=== PATIENT | female | born 1970 | race Two or more races ===

== ENCOUNTER 2017-04-17 08:25 | Outpatient (CLI) | payer OTHER ==
--- NOTE | 2017-04-19 09:50 | Mammography Report ---
DIGITAL BILATERAL SCREENING MAMMOGRAM: 04/17/2017 COMPARISON STUDY: Mammogram 03/09/2015. INDICATION: Screening mammography. TECHNIQUE: Routine CC and MLO projections were obtained of the breasts. FINDINGS: Parenchymal tissue within both breasts is extremely dense, which lowers the sensitivity of mammography; however, there are no dominant masses, suspicious microcalcifications, or secondary sig ns of malignancy. In comparison to the previous studies, there are no significant changes. IMPRESSION: No mammographic evidence of malignancy. PLAN: Screening mammography is recommended annually. BIRADS category 1 - negative. STANDARD QUALIFYING STATEMENTS 1. This examination was reviewed with the aid of Computed-Aided Detection (CAD). 2. A negative or benign imaging report should not delay biopsy if clinically suspicious findings are present. Consider surgical consultation if warranted. More than 5% of cancers are not identified by i maging. 3. Dense breasts may obscure an underlying neoplasm. JOB #: [id number] EXT JOB #:[id number]
== END 2017-04-17 08:26 | disposition home or self-care (01) ==
LOC: DI 08:25
PROVIDERS: ATTEND Family Medicine
DX: Z12.31 Encounter for screening mammogram for malignant neoplasm of breast (principal)
CPT/HCPCS: 77067

== ENCOUNTER 2017-09-28 18:55 | Emergency (ER) | payer OTHER ==
[2017-09-28 19:10] VITALS: BP 129/87
[2017-09-28] MEDS ORDERED: BENZONATATE 100 MG CAPSULE PO STA (20:13)
[2017-09-28] MEDS ORDERED: KETOROLAC 60 MG/2 ML VIAL IM STA (20:13)
--- NOTE | 2017-09-28 20:20 | ED Physician Documentation ---
PD HPI URI - Stated complaint Stated Complaint: COUGH/FEVER - Chief complaint Chief Complaint: Resp - History obtained from History obtained from: Patient - History of Present Illness Timing - onset: How many days ago (2) Timing details: Gradual onset, Still present Associated symptoms: Fever, Chills, Nasal congestion, Sore throat, Dry cough. No: Sweats Contributing factors: No: Sick contact Similar symptoms before: Has not had sx before Recently seen: Not recently seen - Additional information Additional information: Patient is a 47 year old female with a history of diabetes who is presenting to the emergency department for cough, sore throat fever and chills. Patient states that the symptoms have been going on for the last two days. Patient denies any sick contacts or recent travel. Review of Systems Constitutional: reports: Fever, Chills, Myalgias Eyes: reports: Reviewed and negative Ears: reports: Reviewed and negative Nose: reports: Rhinorrhea / runny nose Throat: reports: Sore throat Cardiac: denies: Chest pain / pressure Respiratory: reports: Cough GI: denies: Nausea, Vomiting : reports: Reviewed and negative Skin: denies: Rash, Lesions Musculoskeletal: reports: Reviewed and negative Neurologic: denies: Generalized weakness, Focal weakness Immunocompromised: denies: Immunocompromised PD PAST MEDICAL HISTORY - Past Medical History Past Medical History: Yes Endocrine/Autoimmune: Type 2 diabetes - Past Surgical History Past Surgical History: Yes 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 - Present Medications Home Medications: Ambulatory Orders Medication Instructions Recorded Confirmed Metformin HCl 500 mg PO BID 08/11/13 09/28/17 Azithromycin [Zithromax] 250 mg PO DAILY #4 tablet 09/28/17 Benzonatate [Tessalon Perle] 100 mg PO TID #15 capsule 09/28/17 - Allergies Allergies/Adverse Reactions: Allergies Allergy/AdvReac Type Severity Reaction Status Date / Time No Known Drug Allergies Allergy Verified 09/28/17 19:11 - Social History Does the pt smoke?: No Smoking Status: Never smoker Does the pt drink ETOH?: No Does the pt have substance abuse?: No - Immunizations Immunizations are current?: Yes - POLST Patient has POLST: No PD ED PE NORMAL - Vitals Vital signs reviewed: Yes - General General: Alert and oriented X 3 - HEENT HEENT: Atraumatic, PERRL - Neck Neck: Supple, no meningeal sign - Cardiac Cardiac: RRR, No murmur - Abdomen Abdomen: Soft, Non tender, Non distended - Derm Derm: Normal color, Warm and dry - Extremities Extremities: No deformity - Neuro Neuro: Alert and oriented X 3, No motor deficit, Normal speech Eye Opening: Spontaneous Motor: Obeys Commands Verbal: Oriented GCS Score: 15 - Psych Psych: Normal mood PD ED PE EXPANDED - HEENT HEENT: Nasal congestion, Rhinorrhea, Pharyngeal erythema. No: Tonsillar exudate - Respiratory Respiratory: Clear to ausultation shanika Results - Vitals Vitals: Vital Signs - 24 hr 09/28/17 19:07 Temperature 37.5 C Heart Rate 94 Respiratory 18 Rate Blood Pressure 129/87 H O2 Saturation 97 Oxygen O2 Source Room air - Labs Labs: Laboratory Tests 09/28/17 19:40 Influenza A (Rapid) Negative Influenza B (Rapid) POSITIVE H Influenza Types A,B Ag + H - Rads (name of study) chest x-ray Radiology: Final report received (right sided infiltrate) PD MEDICAL DECISION MAKING - ED course Complexity details: reviewed old records, reviewed results, re-evaluated patient , considered differential, d/w patient, d/w family ED course: Patient was seen and examined at bedside. flu swab was performed and chest x- ray was ordered. Patient was found to have influenza and right sided infiltrate. patient was treated with toradol and azithromycin. Patient was outside of the 48 hour window for tamiflu. Patient was able to tolerate PO without difficulty and was well appearing. patient was stable for discharge with outpatient follow up. Departure - Departure Disposition: 01 Home, Self Care Clinical Impression: Influenza, Pneumonia Condition: Good Instructions: Pneumonia Dc, ED Flu Follow-Up: Ophelai Garcia MD [Primary Care Provider] - Prescriptions: Azithromycin [Zithromax] 250 mg PO DAILY #4 tablet Benzonatate [Tessalon Perle] 100 mg PO TID #15 capsule Comments: Your diagnostics today showed influenza and pneumonia. You had your first dose of antibiotics tonight and you will be on them for the next 4 days. You should also alternate between motrin and tylenol for fevers and aches. You should drink at least 100oz of fluids (water/gatorade) a day and get plenty of rest. You should follow up with your doctor if your symptoms persist. You may return to the emergency department at any time for new, worsening or uncontrollable symptoms.
--- NOTE | 2017-09-28 20:37 | XRAY Report ---
EXAM: CHEST RADIOGRAPHY EXAM DATE: 09/28/2017 07:59 PM. CLINICAL HISTORY: Cough. COMPARISON: None. TECHNIQUE: 2 views. FINDINGS: Lungs/Pleura: Lung volumes are within normal limits. There is mildly increased opacity within the rig ht midlung. There is no evidence of pleural effusion. No pneumothorax. Mediastinum: Heart and mediastinal contours are unremarkable. Other: None. IMPRESSION: 1. Lung volumes and heart size are within normal limits 2. There is a small focus of opacity within the right midlung on frontal view. No clear correlate on lateral view. Differential considerations include small area of infiltrate or scarring. 3. Lungs are otherwise clear. 4. No evidence of effusion. No lung edema. 5. There is no pneumothorax. [facility] Referring Provider Line: [phone] SITE ID: [id number]
[2017-09-28] MEDS ORDERED: AZITHROMYCIN 250 MG TABLET PO STA (20:38)
== END 2017-09-28 20:51 | disposition home or self-care (01) ==
LOC: ED 18:55
DX: J11.00 Influenza due to unidentified influenza virus with unspecified type of pneumonia (principal); E11.9 Type 2 diabetes mellitus without complications; Z79.84 Long term (current) use of oral hypoglycemic drugs
CPT/HCPCS: 71046; 87275; 87276; 96372; 99283; 99284; A9270

== ENCOUNTER 2017-10-24 15:40 | Emergency (ER) | payer OTHER ==
[2017-10-24] MEDS ORDERED: DEXAMETHASONE 10 MG/ML VIAL PO STA (16:32)
[2017-10-24] MEDS ORDERED: oxyCOD/ACETAMIN 5 MG/325 MG TABLET PO STA (16:32)
[2017-10-24] MEDS ORDERED: LIDOCAINE PATCH 5% TOP PRN (16:32)
--- NOTE | 2017-10-24 16:34 | ED Physician Documentation ---
History of Present Illness - Stated complaint Stated Complaint: LOWER BACK AND LEFT LEG PX - Chief complaint Chief Complaint: Back Pain - Additonal information Additional information: hx from pt 47 female had a bad couch and coughed so hard she was hurting in her lower abd and low back also got constipated from cough med and straining for BM made her back hurt too now she has pain from L SI region to hip and into thigh and it is hard to move 2 /2 pain no fever no IV meds drugs no recent surgery is diabetic no abd pain now no urinary sx no incontinence no numbness or weakness Review of Systems Constitutional: denies: Fever Cardiac: denies: Chest pain / pressure Respiratory: denies: Dyspnea GI: denies: Abdominal Pain : denies: Incontinent Musculoskeletal: reports: Back pain, Extremity pain, Joint pain Neurologic: denies: Focal weakness, Numbness Immunocompromised: denies: Immunocompromised PD PAST MEDICAL HISTORY - Past Medical History Endocrine/Autoimmune: Type 2 diabetes - Past Surgical History Past Surgical History: Yes 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 - Present Medications Home Medications: Ambulatory Orders Medication Instructions Recorded Confirmed Metformin HCl 500 mg PO BID 08/11/13 09/28/17 Azithromycin [Zithromax] 250 mg PO DAILY #4 tablet 09/28/17 Benzonatate [Tessalon Perle] 100 mg PO TID #15 capsule 09/28/17 Cyclobenzaprine [Flexeril] 10 mg PO TID PRN #20 tablet 10/24/17 Lidocaine Patch 5% [Lidoderm Patch] 1 each TOP DAILY PRN #10 patch 10/24/17 predniSONE [Deltasone] 40 mg PO DAILY 3 Days #9 tablet 10/24/17 - Allergies Allergies/Adverse Reactions: Allergies Allergy/AdvReac Type Severity Reaction Status Date / Time No Known Drug Allergies Allergy Verified 10/24/17 15:53 - Social History Does the pt smoke?: No Smoking Status: Never smoker Does the pt drink ETOH?: No Does the pt have substance abuse?: No - Immunizations Immunizations are current?: Yes - POLST Patient has POLST: No PD ED PE NORMAL - Vitals Vital signs reviewed: Yes - Cardiac Cardiac: RRR - Respiratory Respiratory: No respiratory distress - Abdomen Abdomen: Soft, Non tender - Back Back: No spinal TTP (no focal redness swelling warmth, pain more lateral near L SI and lumbar ST, limited ext and lateral twist) - Derm Derm: Normal color - Neuro Neuro: No motor deficit, No sensory deficit, Other (denies saddle anesthesia, hip flexion knee extension foot dorsi plantar and great toe ext all 5/5 nl sensation, neg SLR (hurtts back and thich not past knee though), no clonus, patellar DTR 1+/4) Results - Vitals Vitals: Vital Signs - 24 hr 10/24/17 15:48 Temperature 36.1 C L Heart Rate 88 Respiratory 20 Rate Blood Pressure 131/84 H O2 Saturation 98 Oxygen O2 Source Room air PD MEDICAL DECISION MAKING - ED course ED course: sounds like sciatic from coughing is diabetic but no fever etc - doubt epidural abscess will tx symptomatically Departure - Departure Disposition: 01 Home, Self Care Clinical Impression: Sciatica Qualifiers: Laterality: left Qualified Code(s): M54.32 - Sciatica, left side Condition: Good Instructions: ED Sciatica, ED Low Back Pain Injury Follow-Up: Ophelia Garcia MD [Primary Care Provider] - (if not better by next week) Prescriptions: Cyclobenzaprine [Flexeril] 10 mg PO TID PRN #20 tablet PRN Reason: Spasms Lidocaine Patch 5% [Lidoderm Patch] 1 each TOP DAILY PRN #10 patch PRN Reason: Pain predniSONE [Deltasone] 40 mg PO DAILY 3 Days #9 tablet Comments: Based on your history and exam, it seems you have sciatica likely aggravated by all your recent coughing This is usually a self resolving problem I have prescribed medications to ease your symptoms. If you are not better by next week, please see your PMD for a recheck and consideration of imaging If worse (numbness weakness, leaking urine, fever) come back to the ER Forms: Activity restrictions
[2017-10-24] MEDS ORDERED: CHERRY SYRUP 10 ML UDC PO ONE (16:49)
[2017-10-24 16:56] VITALS: BP 128/76
== END 2017-10-24 16:54 | disposition home or self-care (01) ==
LOC: ED 15:40
DX: M54.42 Lumbago with sciatica, left side (principal); R05 Cough; E11.9 Type 2 diabetes mellitus without complications; Z79.84 Long term (current) use of oral hypoglycemic drugs
CPT/HCPCS: 99283; A9270

== ENCOUNTER 2018-03-17 00:25 | Outpatient (CLI) | payer OTHER | END 2018-03-17 00:26 | disposition EMS.NT | LOC: EMS 00:25 | PROVIDERS: ATTEND Surgery | DX: R25.2 Cramp and spasm (principal) ==

== ENCOUNTER 2019-04-18 14:31 | Outpatient (CLI) | payer OTHER ==
--- NOTE | 2019-04-21 11:28 | Mammography Report ---
Reason: ROUTINE MAMMO Procedure Date: 04/18/2019 Accession Number: [id number] / [id number] Procedure: [facility]ARAYAN - Screening Mammo w/Bao CPT Code: FULL RESULT: EXAM: Screening Mammo w/Bao DATE: 04/18/2019 3:05 PM CLINICAL HISTORY: Screening mammography TECHNIQUE: (B) - Bilateral CC and MLO views were obtained. COMPARISON: 04/17/2017, 03/09/2015, 09/13/2012, 04/21/2010 PARENCHYMAL PATTERN: (D) - The breasts demonstrate heterogeneously dense fibroglandular parenchyma bilaterally. FINDINGS: No significant interval change. There are no suspicious masses, calcifications, or areas of distortion. IMPRESSION: Negative examination. BI-RADS category 1. RECOMMENDATION: (ANNUAL) - Recommend routine annual screening mammography. BI-RADS CATEGORY: (1) - Negative. STANDARD QUALIFYING STATEMENTS: 1. This examination was not reviewed with the aid of Computer-Aided Detection (CAD). 2. A negative or benign imaging report should not preclude biopsy if clinically suspicious findings are present. 3. Dense breasts may obscure an underlying neoplasm. 4. This examination was reviewed with the aid of 3D breast imaging (tomosynthesis).
== END 2019-04-18 14:32 | disposition home or self-care (01) ==
LOC: DI 14:31
PROVIDERS: ATTEND Family Medicine
DX: Z12.31 Encounter for screening mammogram for malignant neoplasm of breast (principal)
CPT/HCPCS: 77063; 77067

== ENCOUNTER 2019-11-04 19:12 | Emergency (ER) | payer OTHER ==
--- NOTE | 2019-11-04 20:17 | ED Physician Documentation ---
History of Present Illness - Stated complaint Stated Complaint: RT SIDE PX/NUMBNESS - Chief complaint Chief Complaint: Back Pain - History obtained from History obtained from: Patient - History of Present Illness Timing: Today Pain level max: 8 Pain level now: 7 - Additonal information Additional information: 49-year-old female states that she woke up today and had tingling in her right lower extremity. She states this is gradually worsened throughout the day and is now tingling on the right side of her abdomen clear down her leg. This encompasses the entire leg. Nothing makes this better or worse. Does not have any history of back problems. Denies any trauma. She states that she nearly fell twice today secondary to weakness. Has not had any bowel or bladder issues. 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 - Present Medications Home Medications: Ambulatory Orders Medication Instructions Recorded Confirmed Metformin HCl 500 mg PO BID 08/11/13 09/28/17 Azithromycin [Zithromax] 250 mg PO DAILY #4 tablet 09/28/17 Benzonatate [Tessalon Perle] 100 mg PO TID #15 capsule 09/28/17 Cyclobenzaprine [Flexeril] 10 mg PO TID PRN #20 tablet 10/24/17 Lidocaine Patch 5% [Lidoderm Patch] 1 each TOP DAILY PRN #10 patch 10/24/17 predniSONE [Deltasone] 40 mg PO DAILY 3 Days #9 tablet 10/24/17 Meloxicam [Mobic] 15 mg PO DAILY PRN #20 tablet 11/04/19 predniSONE [Deltasone] 10 mg PO [id number] #42 tab 11/04/19 - Allergies Allergies/Adverse Reactions: Allergies Allergy/AdvReac Type Severity Reaction Status Date / Time No Known Drug Allergies Allergy Verified 11/04/19 19:21 - Social History Does the pt smoke?: No Smoking Status: Never smoker Does the pt drink ETOH?: No Does the pt have substance abuse?: No - Immunizations Immunizations are current?: Yes - POLST Patient has POLST: No PD ED PE NORMAL - Vitals Vital signs reviewed: Yes - General General: Alert and oriented X 3, No acute distress, Well developed/nourished - HEENT HEENT: PERRL, Moist mucous membranes - Neck Neck: Supple, no meningeal sign - Cardiac Cardiac: RRR - Respiratory Respiratory: No respiratory distress, Clear bilaterally - Abdomen Abdomen: Soft, Non tender, Non distended - Back Back: No spinal TTP (No midline tenderness to palpation or percussion. No step- off or deformity) - Derm Derm: Warm and dry - Extremities Extremities: No deformity, Other (symmetric bilateral lower extremity patellar and ankle jerk reflexes. symmetric great toe extension bilaterally. 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 No dermatomal pattern) Eye Opening: Spontaneous Motor: Obeys Commands Verbal: Oriented GCS Score: 15 - Psych Psych: Normal mood, Normal affect Results - Vitals Vitals: Vital Signs - 24 hr 11/04/19 11/04/19 19:17 21:20 Temperature 36.4 C L 37.2 C Heart Rate 84 82 Respiratory 14 18 Rate Blood Pressure 101/86 H 129/80 O2 Saturation 99 98 Oxygen O2 Source Room air - Labs Labs: Laboratory Tests 11/04/19 11/04/19 11/04/19 20:35 20:35 20:35 WBC 8.3 RBC 4.44 Hgb 14.0 Hct 41.7 MCV 93.9 MCH 31.5 H MCHC 33.6 RDW 12.4 Plt Count 207 MPV 10.5 Neut # (Auto) 4.5 Lymph # (Auto) 3.2 Dickey # (Auto) 0.4 Eos # (Auto) 0.1 Baso # (Auto) 0.1 Absolute Nucleated RBC 0.00 Nucleated RBC % 0.0 ESR 19 Sodium 135 Potassium 3.8 Chloride 100 L Carbon Dioxide 22 Anion Gap 13.0 BUN 11 Creatinine 0.5 Estimated GFR (MDRD) 130 Glucose 209 H Calcium 8.8 C-Reactive Protein 1.3 H - Rads (name of study) CT L spine Radiology: Prelim report reviewed, EMP read contemporaneously, See rad report (No acute displaced fracture or malalignment. Mild degenerative changes. Mild broad-based disk bulge at L4-L5 and L5-S1 with mild spinal canal and bilateral neural foraminal stenosis. ) PD MEDICAL DECISION MAKING - ED course Complexity details: reviewed results, re-evaluated patient, considered differential (No cauda equina, no spinal epidural abscess, no fracture, no aortic dissection or evidence of aneursym rupture), d/w patient ED course: 49-year-old female presents to the emergency department for what sounds like sciatica of the right side. No MRI is available tonight. She does not have evidence of cauda equina. We will trial her on steroids and anti-inflammatories for home. She has had sciatica in the past. Ambulating well in the emergency department. No evidence of epidural abscess. No fever. Patient counseled regarding signs and symptoms for which I believe and urgent re-evaluation would be necessary. Patient with good understanding of and agreement to plan and is comfortable going home at this time This document was made in part using voice recognition software. While efforts are made to proofread this document, sound alike and grammatical errors may occur. Departure - Departure Disposition: 01 Home, Self Care Clinical Impression: Sciatica Qualifiers: Laterality: right Qualified Code(s): M54.31 - Sciatica, right side Condition: Good Instructions: ED Sciatica Follow-Up: Ophelia Garcia MD [Primary Care Provider] - Within 3 Days Prescriptions: Meloxicam [Mobic] 15 mg PO DAILY PRN #20 tablet PRN Reason: pain predniSONE [Deltasone] 10 mg PO [id number] #42 tab Comments: Use the medication as prescribed. Follow-up with your doctor for further care. You should have an MRI of your low back scheduled with your doctor. Return if you worsen. Discharge Date/Time: 11/04/19 21:23
--- NOTE | 2019-11-04 20:49 | CT Report ---
Reason: low back pain, LLE numbness Procedure Date: 11/04/2019 Accession Number: [id number] / [id number] Procedure: CT - LUMBAR SPINE WO CPT Code: Final Report FULL RESULT: EXAM: CT LUMBAR SPINE WITHOUT CONTRAST EXAM DATE: 11/04/2019 08:27 PM. CLINICAL HISTORY: Low back pain, LLE numbness. COMPARISONS: None. TECHNIQUE: Thin-section axial images were acquired of the lumbar spine from T12 to S1 without contrast. Post-processing: Coronal and sagittal reformats. Other: None. In accordance with CT protocol optimization, one or more of the following dose reduction techniques were utilized for this exam: automated exposure control, adjustment of mA and/or KV based on patient size, or use of iterative reconstructive technique. FINDINGS: Alignment: No scoliosis or spondylolisthesis. Mild degenerative changes. Mild broad-based disk bulge at L4-L5 and L5-S1 with mild spinal canal and bilateral neural foraminal stenosis. No significant abdomen lity at L1-L2, mild to L3 and L3-L4 disk spaces. Bones: Five [id number] lumbar vertebral bodies are present. No fractures or bone lesions. Musculature: Normal. No fatty atrophy. Other: The visualized retroperitoneum is unremarkable. IMPRESSION: No acute displaced fracture or malalignment. Mild degenerative changes. Mild broad-based disk bulge at L4-L5 and L5-S1 with mild spinal canal and bilateral neural foraminal stenosis. [facility]
[2019-11-04 20:50] LABS: BASOPHILS # (AUTO) 0.1 10^3/uL (0.0-0.1); BASOPHILS % (AUTO) 0.8 %; EOSINOPHILS # (AUTO) 0.1 10^3/uL (0.0-0.7); EOSINOPHILS % (AUTO) 0.8 %; LYMPHOCYTES # (AUTO) 3.2 10^3/uL (1.5-3.5); LYMPHOCYTES % (AUTO) 38.7 %; MEAN CORPUSCULAR HEMOGLOBIN 31.5 pg (27.0-31.0); MEAN CORPUSCULAR HGB CONC 33.6 g/dL (32.0-36.0); MEAN CORPUSCULAR VOLUME 93.9 fL (81.0-99.0); MEAN PLATELET VOLUME 10.5 fL (7.9-10.8); MONOCYTES # (AUTO) 0.4 10^3/uL (0.0-1.0); MONOCYTES % (AUTO) 5.2 %; NEUTROPHILS # (AUTO) 4.5 10^3/uL (1.5-6.6); NEUTROPHILS % (AUTO) 53.9 %; PLT - PLATELET COUNT 207 10^3/uL (130-450); RED BLOOD COUNT 4.44 10^6/uL (4.20-5.40); RED CELL DISTRIBUTION WIDTH 12.4 % (12.0-15.0); WHITE BLOOD COUNT 8.3 x10^3/uL (4.8-10.8)
[2019-11-04] MEDS: KETOROLAC 60 MG/2 ML VIAL IM STA (20:56)
[2019-11-04] MEDS: CHERRY SYRUP 10 ML UDC PO ONE (20:56)
[2019-11-04] MEDS: DEXAMETHASONE 10 MG/ML VIAL PO STA (20:56)
[2019-11-04 21:10] LABS: CALCIUM 8.8 mg/dL (8.5-10.3); CREATININE 0.5 mg/dL (0.4-1.0); CRP - C-REACTIVE PROTEIN 1.3 mg/dL (0-1.0)
[2019-11-04 21:21] VITALS: BP 129/80
== END 2019-11-04 21:23 | disposition home or self-care (01) ==
LOC: ED 19:12
DX: M51.17 Intervertebral disc disorders with radiculopathy, lumbosacral region (principal); M48.07 Spinal stenosis, lumbosacral region; R20.2 Paresthesia of skin; E11.9 Type 2 diabetes mellitus without complications; Z79.84 Long term (current) use of oral hypoglycemic drugs
CPT/HCPCS: 36415; 72131; 80048; 85025; 85651; 86140; 96372; 99284; A9270

== ENCOUNTER 2019-11-08 09:40 | Emergency (ER) | payer OTHER ==
[2019-11-08] MEDS ORDERED: KETOROLAC 60 MG/2 ML VIAL IM STA (12:17)
[2019-11-08] MEDS ORDERED: DEXAMETHASONE 10 MG/ML VIAL PO STA (12:17)
[2019-11-08] MEDS ORDERED: CHERRY SYRUP 10 ML UDC PO ONE (12:17)
--- NOTE | 2019-11-08 12:25 | ED Physician Documentation ---
PD HPI BACK PAIN - Stated complaint Stated Complaint: R/L LEG NUMBNESS - Chief complaint Chief Complaint: Back Pain - History obtained from History obtained from: Patient - History of Present Illness Timing - onset: How many weeks ago (1) Timing - duration: Weeks (1) Timing - details: Gradual onset, Still present Location: Lower, Right Quality: Pain, Spasm, Sharp, Similar to prior episodes Associated symptoms: Numbness. No: Fever, Weakness, Incontinent of urine, Unable to urinate, Hematuria, Incontinent of stool Improves with: Rest, Position Worsened by: Movement Similar symptoms before: Diagnosis (sciatica) Recently seen: Emergency Dept - Additional information Additional information: 49-year-old female with a history of sciatica that was successfully treated 2 years ago has now developed sciatica again over the past week and she came into the emergency department 4 days ago and was treated with dexamethasone and Toradol and had some improvement she has not had further improvement with a prednisone taper and meloxicam. She has symptoms of radiation of pain and numbness down her right leg from the back across the abdomen and all the way down the leg on the left side she has pain and numbness from the calf down.She has not as yet been able to schedule an MRI.MRI was recommended on her most recent visit. Review of Systems Constitutional: denies: Fever Eyes: denies: Decreased vision Ears: denies: Ear pain Nose: denies: Congestion Throat: denies: Sore throat Cardiac: denies: Chest pain / pressure Respiratory: denies: Dyspnea, Cough GI: denies: Vomiting : denies: Dysuria Skin: denies: Rash Musculoskeletal: reports: Back pain. denies: Neck pain Neurologic: reports: Numbness. 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 - Present Medications Home Medications: Ambulatory Orders Medication Instructions Recorded Confirmed Metformin HCl 500 mg PO BID 08/11/13 09/28/17 Azithromycin [Zithromax] 250 mg PO DAILY #4 tablet 09/28/17 Benzonatate [Tessalon Perle] 100 mg PO TID #15 capsule 09/28/17 Cyclobenzaprine [Flexeril] 10 mg PO TID PRN #20 tablet 10/24/17 Lidocaine Patch 5% [Lidoderm Patch] 1 each TOP DAILY PRN #10 patch 10/24/17 predniSONE [Deltasone] 40 mg PO DAILY 3 Days #9 tablet 10/24/17 Meloxicam [Mobic] 15 mg PO DAILY PRN #20 tablet 11/04/19 predniSONE [Deltasone] 10 mg PO [id number] #42 tab 11/04/19 Cyclobenzaprine [Flexeril] 10 mg PO TID PRN #20 tablet 11/08/19 Hydrocodone/Acetaminophen 1 - 2 each PO Q6H PRN #14 tablet 11/08/19 [Hydrocodon-Acetaminophen 5-325] - Allergies Allergies/Adverse Reactions: Allergies Allergy/AdvReac Type Severity Reaction Status Date / Time No Known Drug Allergies Allergy Verified 11/04/19 19:21 - Social History Does the pt smoke?: No Smoking Status: Never smoker Does the pt drink ETOH?: No Does the pt have substance abuse?: No - Immunizations Immunizations are current?: Yes - POLST Patient has POLST: No PD ED PE NORMAL - Vitals Vital signs reviewed: Yes (normal ) - General General: Alert and oriented X 3, No acute distress, Well developed/nourished - HEENT HEENT: Atraumatic, PERRL, EOMI - Neck Neck: Supple, no meningeal sign, No bony TTP - Respiratory Respiratory: No respiratory distress - Back Back: No CVA TTP, No spinal TTP, Other (tenderness to the right sciatic notch is mild but present. There is no midline tenderness and no mass or erythema noted. ) - Derm Derm: Normal color, Warm and dry, No rash - Extremities Extremities: No deformity, No edema, No calf tenderness / cord - Neuro Neuro: Alert and oriented X 3, cardroom plastic card grader 2-12 intact, No motor deficit, No sensory d eficit, Normal speech Eye Opening: Spontaneous Motor: Obeys Commands Verbal: Oriented GCS Score: 15 - Psych Psych: Normal mood, Normal affect Results - Vitals Vitals: Vital Signs - 24 hr 11/08/19 11/08/19 09:45 10:41 Temperature 36.7 C Heart Rate 88 85 Respiratory 18 16 Rate Blood Pressure 129/73 132/78 H O2 Saturation 99 99 Oxygen O2 Source Room air PD MEDICAL DECISION MAKING - ED course Complexity details: considered differential, d/w patient ED course: 49-year-old female with acute sciatica has concern for persistence of symptoms despite recent treatment. She has extensive sciatica extending from the abdomen all the way down the right leg and she has symptoms on the left lower calf as well. MRI has been recommended and this appears appropriate. Here in the emergency department today again she is treated with dexamethasone and Toradol we will place her on some hydrocodone and Flexeril. Departure - Departure Disposition: 01 Home, Self Care Clinical Impression: Sciatica Qualifiers: Laterality: bilateral Qualified Code(s): M54.31 - Sciatica, right side; M54.32 - Sciatica, left side Condition: Stable Instructions: ED Sciatica Follow-Up: Ophelia Garcia MD [Primary Care Provider] - Prescriptions: Cyclobenzaprine [Flexeril] 10 mg PO TID PRN #20 tablet PRN Reason: Spasms Hydrocodone/Acetaminophen [Hydrocodon-Acetaminophen 5-325] 1 - 2 each PO Q6H PRN #14 tablet PRN Reason: pain Comments: Today it appears her sciatica is severe and extensive. MRI is recommended. Follow-up with your primary care doctor for this order.
[2019-11-08 13:02] VITALS: BP 118/68
== END 2019-11-08 13:02 | disposition home or self-care (01) ==
LOC: ED 09:40
DX: M54.42 Lumbago with sciatica, left side (principal); M54.41 Lumbago with sciatica, right side; E11.9 Type 2 diabetes mellitus without complications; Z79.84 Long term (current) use of oral hypoglycemic drugs
CPT/HCPCS: 96372; 99283; 99284; A9270

== ENCOUNTER 2020-05-19 15:22 | Outpatient (CLI) | payer OTHER ==
--- NOTE | 2020-05-21 13:17 | Mammography Report ---
BILATERAL DIGITAL SCREENING MAMMOGRAM 3D/2D: 05/19/2020 CLINICAL: Routine screening. Comparison is made to exams dated: 04/18/2019 mammogram, 04/17/2017 mammogram, 03/09/2015 mammogram, 09/13/2012 mammogram, and 04/21/2010 mammogram - [facility]. There are scattered fi broglandular elements in both breasts. No significant masses, calcifications, or other findings are seen in either breast. There has been no significant interval change. IMPRESSION: NEGATIVE There is no mammographic evidence of malignancy. A 1 year screening mammogram is recommended. This exam was interpreted at Station ID: [id number]. NOTE: For mammograms, a report in lay terms will be sent to the patient. Approximately 15% of breast malignancies will not be visualized mammographically. In the management of a palpable breast mass, a negative mammogram must not discourage biopsy of a clinically suspicious lesion. Electronically Signed By: Martinez Walters M.D., jr/dennisrad:05/19/2020 15:56:08 ACR BI-RADS Category 1: Negative 3341F PARENCHYMAL PATTERN: (A) - The breast(s) demonstrate(s) scattered fibroglandular densities. BI-RADS CATEGORY: (1) - 1 RECOMMENDATION: (ANNUAL) - Recommend routine annual screening mammography. [id number] 1 year screening LATERALITY: (B)
== END 2020-05-19 15:23 | disposition home or self-care (01) ==
LOC: DI 15:22
DX: Z12.31 Encounter for screening mammogram for malignant neoplasm of breast (principal)
CPT/HCPCS: 77063; 77067

== ENCOUNTER 2021-05-05 08:00 | Outpatient (CLI) | payer OTHER ==
--- NOTE | 2021-05-05 17:26 | XRAY Report ---
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 COMPARISON: None FINDINGS: Bones: No fractures or dislocations. No suspicious bony lesions. Soft tissues: No suspicious soft tissue calcifications. IMPRESSION: No osseous abnormality. Reviewed by: Joselyn Keith MD on 05/05/2021 5:25 PM [facility] Approved by: Joselyn Keith MD on 05/05/2021 5:25 PM [facility] Station ID: [id number]
== END 2021-05-05 23:59 | disposition home or self-care (01) ==
LOC: DI.N 08:00
PROVIDERS: ATTEND Physician Assistant
DX: M65.332 Trigger finger, left middle finger (principal); M65.331 Trigger finger, right middle finger

== ENCOUNTER 2021-10-24 12:38 | Outpatient (CLI) | payer OTHER ==
--- NOTE | 2021-10-24 14:43 | Mammography Report ---
BILATERAL DIGITAL SCREENING MAMMOGRAM 3D/2D: 10/24/2021 CLINICAL: Routine screening. Comparison is made to exams dated: 05/19/2020 mammogram, 04/18/2019 mammogram, 04/17/2017 mammogram, 03/09/2015 mammogram, 09/13/2012 mammogram, and 04/21/2010 mammogram - [facility]. There are scattered fibroglandular elements in both breasts. No significant masses, calcifications, or other findings are seen in either breast. There has been no significant interval change. IMPRESSION: NEGATIVE There is no mammographic evidence of malignancy. A 1 year screening mammogram is recommended. This exam was interpreted at Station ID: [id number]. NOTE: For mammograms, a report in lay terms will be sent to the patient. Approximately 15% of breast malignancies will not be visualized mammographically. In the management of a palpable breast mass, a negative mammogram must not discourage biopsy of a clinically suspicious lesion. Electronically Signed By: Martinez Walters M.D., jr/gerardo:10/24/2021 13:29:57 ACR BI-RADS Category 1: Negative 3341F PARENCHYMAL PATTERN: (A) - The breast(s) demonstrate(s) scattered fibroglandular densities. BI-RADS CATEGORY: (1) - 1 RECOMMENDATION: (ANNUAL) - Recommend routine annual screening mammography. [id number] 1 year screening LATERALITY: (B)
== END 2021-10-24 12:39 | disposition home or self-care (01) ==
LOC: DI.N 12:38
DX: Z12.31 Encounter for screening mammogram for malignant neoplasm of breast (principal)

== ENCOUNTER 2022-03-04 17:29 | Emergency (ER) | payer OTHER ==
[2022-03-04 17:41] VITALS: BP 146/71
--- NOTE | 2022-03-04 18:36 | ED Physician Documentation ---
PD HPI LOWER EXT INJURY - Stated complaint Stated Complaint: L FOOT INJ - Chief complaint Chief Complaint: Ext Problem - History obtained from History obtained from: Patient - Additional information Additional information: 5 days ago she got out of the car wrong and twisted her foot and inverted her left foot. She has had persistent pain in the area of the proximal fourth and fifth metatarsals since then. She is able to walk and bear weight. No other injuries. 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 - Present Medications Home Medications: Ambulatory Orders Medication Instructions Recorded Confirmed Metformin HCl 500 mg PO BID 08/11/13 09/28/17 Azithromycin [Zithromax] 250 mg PO DAILY #4 tablet 09/28/17 Benzonatate [Tessalon Perle] 100 mg PO TID #15 capsule 09/28/17 Cyclobenzaprine [Flexeril] 10 mg PO TID PRN #20 tablet 10/24/17 Lidocaine Patch 5% [Lidoderm Patch] 1 each TOP DAILY PRN #10 patch 10/24/17 predniSONE [Deltasone] 40 mg PO DAILY 3 Days #9 tablet 10/24/17 Meloxicam [Mobic] 15 mg PO DAILY PRN #20 tablet 11/04/19 predniSONE [Deltasone] 10 mg PO [id number] #42 tab 11/04/19 Cyclobenzaprine [Flexeril] 10 mg PO TID PRN #20 tablet 11/08/19 Hydrocodone/Acetaminophen 1 - 2 each PO Q6H PRN #14 tablet 11/08/19 [Hydrocodon-Acetaminophen 5-325] - Allergies Allergies/Adverse Reactions: Allergies Allergy/AdvReac Type Severity Reaction Status Date / Time No Known Drug Allergies Allergy Verified 03/04/22 17:39 - Social History Does the pt smoke?: No Smoking Status: Never smoker Does the pt drink ETOH?: No Does the pt have substance abuse?: No - Immunizations Immunizations are current?: Yes - POLST Patient has POLST: No PD ED PE NORMAL - Vitals Vital signs reviewed: Yes - General General: Alert and oriented X 3, No acute distress - Extremities Extremities: Other (Mild tenderness that seems focused at the proximal fourth metatarsal of the left foot. There is no overlying swelling, deformity, or discoloration. Neurovascularly intact in the toes and manipulation of each toe does not elicit pain.) - Neuro Neuro: Alert and oriented X 3, Normal speech Results - Vitals Vitals: Vital Signs - 24 hr 03/04/22 17:39 Temperature 36.5 C Heart Rate 92 Respiratory 16 Rate Blood Pressure 146/71 H O2 Saturation 98 Oxygen O2 Source Room air PD MEDICAL DECISION MAKING - ED course ED course: 51-year-old woman with a left foot sprain, she is placed in a boot for comfort and to stabilize the ligaments pending follow-up. Departure - Departure Disposition: 01 Home, Self Care Clinical Impression: Sprain of left foot Qualifiers: Encounter type: initial encounter Qualified Code(s): S93.602A - Unspecified sprain of left foot, initial encounter Condition: Good Record reviewed to determine appropriate education?: Yes Instructions: ED Sprain Foot Comments: Tylenol and/or ibuprofen as needed per package instructions for pains. Follow- up with your doctor in a week if not improved. Return for any worsening symptoms. You can wear the boot as needed when up and around which will minimize motion of the foot and hopefully speed healing. You can also ice it when at rest. Discharge Date/Time: 03/04/22 18:58
--- NOTE | 2022-03-04 18:40 | XRAY Report ---
PROCEDURE: Foot 3 View LT INDICATIONS: Trauma TECHNIQUE: 3 views of the foot were acquired. COMPARISON: None FINDINGS: Bones: No fractures or dislocations. No suspicious bony lesions. Soft tissues: No tibiotalar joint effusion. Achilles tendon appears normal. IMPRESSION: No evidence acute bony abnormality of the left foot Reviewed by: Mehul Conner MD on 03/04/2022 6:38 PM PDT Approved by: Mehul Conner MD on 03/04/2022 6:38 PM PDT Station ID: [id number]
== END 2022-03-04 18:58 | disposition home or self-care (01) ==
LOC: ED 17:29
DX: S93.602A Unspecified sprain of left foot, initial encounter (principal); X50.1XXA Overexertion from prolonged static or awkward postures, initial encounter; E11.9 Type 2 diabetes mellitus without complications
CPT/HCPCS: 1040M; 73630; 99282; 99283

== ENCOUNTER 2023-12-20 09:21 | Outpatient (CLI) | payer OTHER ==
--- NOTE | 2023-12-21 09:08 | Mammography Report ---
BILATERAL DIGITAL SCREENING MAMMOGRAM 3D/2D: 12/20/2023 CLINICAL: Routine screening. Comparison is made to exams dated: 10/24/2021 mammogram, 05/19/2020 mammogram, 04/18/2019 mammogram, 1 mammogram, and 03/09/2015 mammogram - [facility]. Both breasts are heterogeneously dense, which may obscure small masses (category c / 51-75% glandular tissue). No significant masses, calcifications, or other findings are seen in either breast. There has been no significant interval change. IMPRESSION: NEGATIVE There is no mammographic evidence of malignancy. A 1 year screening mammogram is recommended. Based on the Tyrer Cuzick model (a risk assessment model) the patient's lifetime risk is 14.2% and he r 10 year risk is 4.4%. According to the ACR, ACS, and NCCN guidelines, an annual breast MRI exam gerardo ng with mammogram is recommended if the patient's lifetime risk is 20% or greater. This exam was interpreted at Station ID: [id number]. NOTE: For mammograms, a report in lay terms will be sent to the patient. Approximately 15% of breast malignancies will not be visualized mammographically. In the management of a palpable breast mass, a negative mammogram must not discourage biopsy of a clinically suspicious lesion. Electronically Signed By: Theodore jackson/gerardo:12/20/2023 12:38:49 letter sent: No_Letter ACR BI-RADS Category 1: Negative 3341F PARENCHYMAL PATTERN: (D) - The breast(s) demonstrate(s) heterogeneously dense fibroglandular jammie poole. BI-RADS CATEGORY: (1) - 1 RECOMMENDATION: (ANNUAL) - Recommend routine annual screening mammography. [id number] 1 year screening LATERALITY: (B)
== END 2023-12-20 09:22 | disposition home or self-care (01) ==
LOC: DI 09:21
PROVIDERS: ATTEND Family Medicine
DX: Z12.31 Encounter for screening mammogram for malignant neoplasm of breast (principal); R92.333 Mammographic heterogeneous density, bilateral breasts